=== PATIENT | female | born 1980 | race Caucasian/White ===

== ENCOUNTER 2019-02-02 07:04 | Emergency (ER) | payer OTHER ==
[~2019-02-02] VITALS: Ht 167.6 cm; Wt 130.2 kg
[2019-02-02 07:10] VITALS: Ht 167.6 cm; Wt 130.2 kg
[2019-02-02 07:47] LABS: CALCIUM 8.8 mg/dL (8.5-10.1); CARBON DIOXIDE 29.5 mmol/L (21-32); CHLORIDE SERUM 106 mmol/L (98-107); CREATININE SERUM 0.8 mg/dL (0.6-1.0); GFR1 > 60 mL/min; GLUCOSE SERUM 106 mg/dL (74-106); POTASSIUM SERUM 4.5 mmol/L (3.5-5.1); SODIUM SERUM 140 mmol/L (136-145)
[2019-02-02 07:51] LABS: ALBUMIN 3.5 g/dL (3.4-5.0); ALKALINE PHOSPHATASE 101 U/L (46-116); ALT/SGPT 20 U/L (14-59); AMYLASE 38 U/L (25-115); AST/SGOT 15 U/L (15-37); BILIRUBIN TOTAL 0.3 mg/dL (0.20-1.00); LIPASE 86 IU/L (73-393); TOTAL PROTEIN, SERUM 7.6 g/dL (6.4-8.2)
[2019-02-02 08:08] LABS: BASOPHIL % 0.3 % (0-2); PLATELET COUNT 300 x10^3mcL (130-400); RED CELL DISTRIBUTION WIDTH 14.3 % (11.5-14.5)
[2019-02-02 08:35] VITALS: BP 130/82
== END 2019-02-02 08:44 | disposition home or self-care (01) ==
LOC: ED 07:04
PROVIDERS: Emergency Medicine
DX: R10.11 Right upper quadrant pain (principal); R11.0 Nausea; Z88.1 Allergy status to other antibiotic agents; Z98.51 Tubal ligation status; Z90.49 Acquired absence of other specified parts of digestive tract
CPT/HCPCS: J1885; J2405

== ENCOUNTER 2019-05-14 16:01 | Emergency (ER) | payer OTHER ==
[~2019-05-14] VITALS: Ht 167.6 cm; Wt 132.0 kg
[2019-05-14 16:05] VITALS: Ht 167.6 cm; Wt 132.0 kg
[2019-05-14 18:05] VITALS: BP 128/84
== END 2019-05-14 18:05 | disposition home or self-care (01) ==
LOC: ED 16:01
DX: S39.012A Strain of muscle, fascia and tendon of lower back, initial encounter (principal); Z88.1 Allergy status to other antibiotic agents; Z98.890 Other specified postprocedural states; Z90.49 Acquired absence of other specified parts of digestive tract; Z98.51 Tubal ligation status; X58.XXXA Exposure to other specified factors, initial encounter; Y93.89 Activity, other specified; Y92.89 Other specified places as the place of occurrence of the external cause; Y99.8 Other external cause status
CPT/HCPCS: J1885